=== PATIENT | female | born 1980 | race Caucasian/White ===

== ENCOUNTER 2019-04-16 00:48 | Emergency (ER) | payer SELFPAY ==
[2019-04-16 00:50] VITALS: BP 190/123; PULSE 80; RESP 16; TEMP 36.6; O2SAT 100
--- NOTE | 2019-04-16 01:02 | ED_ITS ---
HPI - Chest Pain General Chief Complaint: Chest Pain Stated Complaint: chest pain Time Seen by Provider: 04/16/19 00:51 Source: patient Mode of arrival: ambulatory Limitations: no limitations History of Present Illness HPI narrative: The patient arrives with complaints of central sternal chest pain. She has a prior history of chest pain, seemingly associated with anxiety. She had several alcoholic drinks this evening. She describes developing the discomfort while contemplating prior episodes of chest pain. Prior cardiac evaluations have been normal. She is on antihypertensive medications as well as depression/anxiety meds. She did take aspirin and her blood pressure meds this evening, although she admits to be in intermittently compliant with medications. She also took Pepto-Bismol and Gas-X for what she seemed could be a stomach issue. The pain has improved, but persists. There is no associated dyspnea. She denies palpitations, dizziness or weakness. She has no history of CAD/[place]. Related Data Home Medications Medication Instructions Recorded Confirmed ASPIRIN (Aspirin Low Dose) 81 mg PO Q DAY #0 11/25/10 LISINOPRIL (Zestril / Prinivil) 20 mg PO Q DAY #0 11/25/10 Metoprolol Tartrate (Lopressor) 50 mg PO BID #0 11/25/10 Simvastatin (Zocor) 10 mg PO HS #0 11/25/10 fluoxetine [Prozac] 10 mg PO QDAY #0 01/10/13 Allergies Allergy/AdvReac Type Severity Reaction Status Date / Time INGREDIENT: NDA - NO KNOWN Allergy Unknown Uncoded 12/25/17 13:09 DRUG ALLERGIES Review of Systems Constitutional Reports system reviewed and no additional complaints, except as docu ENT Ears, Nose, Mouth, and Throat: Denies dizziness Comments: No complaints Cardiovascular Denies dyspnea Comments: Chest pain as noted in HPI. Respiratory Denies cough and Denies dyspnea Gastrointestinal Gastrointestinal: Denies hematochezia, Denies diarrhea, Denies nausea, Denies vomiting and Denies hematemesis Comments: Epigastric pain. Genitourinary Comments: No urinary complaints. Musculoskeletal Denies back pain Integumentary/Breasts Denies rash Neurologic Denies confusion and Denies dizziness Psychiatric Denies confusion [facility] Medical History (Updated 04/16/19 @ 02:18 by Javi Watts MD) Anxiety (Acute) Hypertension (Acute) Surgical History (Updated 04/16/19 @ 02:19 by Javi Watts MD) No pertinent past surgical history (Acute) Social History (Updated 04/16/19 @ 02: by Javi Watts MD) Smoking Status: Current every day smoker alcohol intake: current Social History (Updated 04/16/19 @ 02:19 by Javi Watts MD) Smoking Status: Current every day smoker alcohol intake: current Exam Initial Vital Signs Initial Vital Signs: Vital Signs Temperature 97.9 F 04/16/19 00:50 Pulse Rate 80 04/16/19 00:50 Respiratory Rate 16 04/16/19 00:50 Blood Pressure 190/123 H 04/16/19 00:50 Pulse Oximetry 100 04/16/19 00:50 Const General: cooperative and well developed Nutritional Appearance: well nourished Orientation: alert, awake, oriented x3 and not confused Other: Her breath smells of alcohol. HENMT Head: normocephalic and atraumatic Nose: external nose normal Face and sinus: sinuses nontender, face symmetric, no sinus tenderness and No dry mucous membranes Mouth: oral mucosae normal and moist mucous membranes Teeth and gingiva: dentition normal Throat: tonsils normal and uvula midline Eyes Pupils: PERRL EOM: EOM intact bilaterally Neck Neck: full ROM Lymphatic: No lymphadenopathy Chest Other: No palpable tenderness Resp Auscultation: clear to auscultation bilaterally Cardio Rate: regular rate Rhythm: regular rhythm Heart Sounds: S1 normal, S2 normal, no click, no murmurs and no rubs GI Inspection: non-distended Palpation: soft, no hepatosplenomegaly, No guarding and tender (Mild epigastric tenderness with palpation) Auscultation: normal bowel sounds Back/Spine/Pelvis Back: No CVA tenderness Skin General: no rashes or lesions noted and No petechiae Neuro General: alert, oriented x3, gait normal and no focal motor deficits Speech: speech normal Extrem General: full ROM, no clubbing, cyanosis or edema, no pedal edema and no calf tenderness Psych Appearance: well kempt Mental Status: mental status grossly normal Mood: anxious mood Attitude: cooperative Thought Content: normal Judgment: judgment good Course Course Narrative: Her epigastric pain resolved after receiving a GI cocktail. She admits to drinking alcohol throughout the day. She likely developed gastritis. In addition to the GI cocktail she was given a single dose of Protonix prior to discharge. I recommended Zantac if she has ongoing abdominal discomfort tomorrow. She was asymptomatic at the time of discharge. Orders Ordered: ED Orders 04/16/19 00:58 Complete Blood Count AUTO DIFF Stat Comprehensive Metabolic Panel Stat Lipase Stat Troponin & CK Cardiac Panel Stat Discontinued Medications Al Hydrox/Mg Hydrox/Simethicone 20 ml/ Lidocaine HCl 15 ml 0 ml PO NOW ONE Stop: 04/16/19 01:09 Last Admin: 04/16/19 01:18 Dose: 35 ml Pantoprazole Sodium (Protonix) 20 mg PO NOW ONE Stop: 04/16/19 02:15 Vital Signs - 8 hr 04/16/19 00:50 04/16/19 01:43 04/16/19 01:59 Temperature 97.9 F Pulse Rate 80 67 68 Respiratory Rate 16 12 13 Blood Pressure 190/123 H Blood Pressure [Left Arm] 160/112 H 145/104 H Pulse Oximetry 100 98 97 04/16/19 02:22 Temperature Pulse Rate 80 Respiratory Rate 16 Blood Pressure 159/114 H Blood Pressure [Left Arm] Pulse Oximetry 99 MDM - Chest Pain Lab Data Result diagrams: 04/16/19 00:58 04/16/19 00:58 Lab Results 04/16/19 04/16/19 Range/Units 00:58 00:58 WBC 12.2 H (4.5-11.0) X10^3/uL RBC 4.30 (4.0-5.2) X10^6/uL Hgb 13.5 (12.0-16.0) g/dL Hct 39.6 (36-46) % MCV 92.0 (80-100) fL MCH 31.5 (26-34) PG MCHC 34.3 (30-36) % RDW 13.2 (11.6-14.8) % Plt Count 334 (150-400) X10^3/uL Neut % (Auto) 54.2 (50-75) % Lymph % (Auto) 34.6 (25-40) % [place] % (Auto) 6.1 (3-14) % Eos % (Auto) 4.4 H (2-4) % Baso % (Auto) 0.7 (0-2) % Neut # (Auto) 6600 (9095-5489) /uL Lymph # (Auto) 4200 (0164-5299) /uL [place] # (Auto) 700 (0-900) /uL Eos # (Auto) 500 H (0-450) /uL Baso # (Auto) 100 (0-100) /uL Sodium 136 L (137-145) mmol/L Potassium 3.8 (3.4-5.1) mmol/L Chloride 102 (98-107) mmol/L Carbon Dioxide 25 (22-32) mmol/L BUN 13 (7-17) mg/dL Creatinine 0.60 (0.52-1.04) mg/dL Estimated GFR > 60.0 (>60) mL/min BUN/Creatinine Ratio 21.7 (6-22) Glucose 119 H (70-100) mg/dL Calcium 8.6 (8.4-10.2) mg/dL Total Bilirubin 0.2 (0.2-1.3) mg/dL AST 67 H (14-36) IU/L ALT 49 (9-52) IU/L Alkaline Phosphatase 49 (38-126) U/L Total Creatine Kinase 205 H (30-135) U/L CK-MB (CK-2) 1.02 (<2.37) ng/mL CK-MB (CK-2) Rel Index 0.5 L (1.5-5.0) % Troponin I < 0.012 (0.01-0.034) ng/mL Total Protein 7.5 (6.3-8.2) g/dL Albumin 4.3 (3.5-5.0) g/dL Globulin 3.2 (1.7-4.1) g/dL Albumin/Globulin Ratio 1.3 (1.0-2.8) Lipase 170 (23-300) U/L ECG Data Attestation: I personally reviewed and interpreted this ECG as follows: (Normal sinus rhythm rate 77 BMP EM. No ectopy. Normal intervals. No acute ST T wave findings.) Discharge Plan Departure Patient Disposition: Home Clinical Impression: Gastritis Qualifiers: Gastritis type: unspecified gastritis Chronicity: acute Gastritis bleeding: without bleeding Qualified Code(s): K29.00 - Acute gastritis without bleeding Discharge Date/Time: 04/16/19 02:23 Interventions: ED Discharge Assessment Last Done: 04/16/19 02:22 Instructions: Gastritis Activity Restrictions/Additional Instructions: Over the counter Zantac 2 tablets 2 times daily. Follow up with your doctor in 1 week if he still have symptoms. Return the ER if you develop increasing chest pain or difficulty breathing. Prescriptions: No Action ASPIRIN (Aspirin Low Dose) 81 mg PO Q DAY Qty: 0 RF: 0 LISINOPRIL (Zestril / Prinivil) 20 mg PO Q DAY Qty: 0 RF: 0 Metoprolol Tartrate (Lopressor) 50 mg PO BID Qty: 0 RF: 0 Simvastatin (Zocor) 10 mg PO HS Qty: 0 RF: 0 fluoxetine [Prozac] 10 MG capsule 10 mg PO QDAY Qty: 0 RF: 0 Referrals: Katie Muñoz MD [Primary Care Provider] -
[2019-04-16] MEDS: MAG HYDROX/ALUMINUM/SIMETH SUS 20 ML, LIDOCAINE VISCOUS 2% 15 ML PO (01:18)
[2019-04-16 01:23] LABS: Add Manual Diff / Slide Review NO; Alanine Aminotransferase 49 IU/L (9-52); Albumin 4.3 g/dL (3.5-5.0); Albumin Globulin Ratio 1.3 (1.0-2.8); Alkaline Phosphatase 49 U/L (38-126); Aspartate Aminotransferase 67 IU/L (14-36); BUN Creatinine Ratio 21.7 (6-22); Basophils Absolute Auto 100 /uL (0-100); Basophils Percent Auto 0.7 % (0-2); Bilirubin Total 0.2 mg/dL (0.2-1.3); Blood Urea Nitrogen 13 mg/dL (7-17); Calcium 8.6 mg/dL (8.4-10.2); Carbon Dioxide 25 mmol/L (22-32); Chloride 102 mmol/L (98-107); Creatine Kinase 205 U/L (30-135); Eosinophils Absolute Auto 500 /uL (0-450); Eosinophils Percent Auto 4.4 % (2-4); Estimated Glomerular Filt Rate > 60.0 mL/min (>60); Globulin 3.2 g/dL (1.7-4.1); Glucose 119 mg/dL (70-100); HEMOLYSIS < 15 (0-50); Hematocrit 39.6 % (36-46); Hemoglobin 13.5 g/dL (12.0-16.0); Lipase 170 U/L (23-300); Lymphocytes Absolute Auto 4200 /uL (1100-4500); Lymphocytes Percent Auto 34.6 % (25-40); Mean Corpuscular HGB Conc 34.3 % (30-36); Mean Corpuscular Hemoglobin 31.5 PG (26-34); Monocytes Absolute Auto 700 /uL (0-900); Monocytes Percent Auto 6.1 % (3-14); Neutrophils Absolute Auto 6600 /uL (1500-7000); Neutrophils Percent Auto 54.2 % (50-75); Platelet Count 334 X10^3/uL (150-400); Potassium 3.8 mmol/L (3.4-5.1); Red Cell Distribution Width 13.2 % (11.6-14.8); Sodium 136 mmol/L (137-145); Total Protein 7.5 g/dL (6.3-8.2); White Blood Cell Count 12.2 X10^3/uL (4.5-11.0)
[2019-04-16 01:34] LABS: Troponin I < 0.012 ng/mL (0.01-0.034)
[2019-04-16 01:38] LABS: CKMB % Relative Index 0.5 % (1.5-5.0); Creatine Kinase MB 1.02 ng/mL (<2.37)
[2019-04-16 01:43] VITALS: BP 160/112; PULSE 67; RESP 12; O2SAT 98
[2019-04-16 01:59] VITALS: BP 145/104; PULSE 68; RESP 13; O2SAT 97
[2019-04-16 02:22] VITALS: BP 159/114; PULSE 80; RESP 16; O2SAT 99
== END 2019-04-16 02:23 | disposition home or self-care (01) ==
PROVIDERS: Emergency Provider Emergency Medicine; Family Provider Family Medicine; PCP Family Medicine
DX: K29.00 Acute gastritis without bleeding (principal); R07.9 Chest pain, unspecified
CPT/HCPCS: 36591; 80053; 82550; 82553; 83690; 84484; 85025; 93005; 99283; 99284